=== PATIENT | female | born 2000 | race Caucasian/White ===

== ENCOUNTER 2022-07-16 15:39 | Emergency (ER) | payer BC ==
[~2022-07-16] VITALS: Ht 162.6 cm; Wt 41.7 kg
--- NOTE | 2022-07-16 15:15 | NUR ---
Social Work consult was requested for a patient in the emergency room for mental health resources. Patient is a 22-year-old female. Patient appears alert and oriented X4. Patient presents with depressed mood and congruent affect. Patients parents, Honey and Florin were with the patient in the hospital waiting room. Patient states her primary contact is her mother, Honey ([phone]). Patient states that she is currently living at [address] [place] [address] with her parents. 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 Patient states she has a history of depression and anxiety. Patient states she has been feeling overwhelmed and disconnected from friends. Patient denies current suicidal ideation. SW provided emotional support, validation and spoke about coping strategies. SW provided the patient with mental health resources for [facility] [address] [facility], [place], [address] , [facility] [address] [facility], [id number] , and [facility] [address] [facility], [address] . SW also provided the resource for [facility] [address] [place] [address] ([phone]). Patient appeared appreciative of the resources. Patient states she is going to start working with a new therapist named Mónica Josue ([phone]) and has already spoken to her on the phone. Patient states her discharge plan is to go home with her parents to [address] [place] [address]. SW placed the resources in the patients chart.
[2022-07-16] MEDS ORDERED: IV NS 1000 ML 1,000 ML IV ONE (16:00)
[2022-07-16] MEDS ORDERED: DULOXETINE 20 MG CAPSULE.DR PO SCH (16:00)
[2022-07-16] MEDS ORDERED: PANT20TA2 PO (16:30)
[2022-07-16] MEDS ORDERED: CITA10TA17 PO (16:30)
[2022-07-16] MEDS ORDERED: CITALOPRAM 10 MG TABLET PO SCH (16:30)
[2022-07-16 16:45] LABS: HEMATOCRIT 40.4 % (31.2-41.9); MEAN CORPUSCULAR HEMOGLOBIN 31.7 uug (24.7-32.8); MEAN CORPUSCULAR VOLUME 94.9 fL (75.5-95.3); PLATELET COUNT (AUTO) 286 K/uL (179-408)
[2022-07-16 16:57] LABS: CREATININE 0.9 mg/dL (0.6-1.3); MAGNESIUM 2.1 mg/dL (1.8-2.4); PHOSPHOROUS 3.9 mg/dL (2.5-4.9); POTASSIUM 4.4 mmol/L (3.5-5.1)
[2022-07-16] MEDS ORDERED: CITALOPRAM 10 MG TABLET ONE (16:59)
[2022-07-16 18:52] VITALS: BP 121/79
[2022-07-17] MEDS ORDERED: TRAZ-182 PO (20:22)
== END 2022-07-16 18:53 | disposition home or self-care (01) ==
LOC: ER 15:39
DX: F41.8 Other specified anxiety disorders (principal)
CPT/HCPCS: 99284; 80048; 83735; 84100; 85025; 36415; J7040; A4663